=== PATIENT | female | born 1990 | race Caucasian/White ===

== ENCOUNTER 2023-12-23 10:37 | Emergency (ER) | payer OTHER, SELFPAY ==
[2023-12-23 10:40] VITALS: BP 97/68
--- NOTE | 2023-12-23 11:25 | ED.GENMED ---
History of Present Illness
General
Chief Complaint: Numbness
Source: patient
Exam Limitations: none
Time Seen by Provider: 12/23/23 11:12
History of Present Illness
History of Present Illness:
See MDM
Past History
Past History
ED Past Medical History: None
ED Past Surgical History: None
Social History
Tobacco: Non-smoker
Alcohol: None
Phy Exam
Physical Exam
Physical Exam:
See MDM
Course
Orders/Labs/Results
Orders:
Orders
12/23/23 11:24
CT Head W/o Iv Contrast Urgent
Comment:
Reason For Exam: intermittent R facial numbness
12/23/23 11:29
Test Result ONCE
12/23/23 11:37
Complete Blood Count/With Diff Urgent
Comprehensive Metabolic Panel Urgent
HCG, Serum Qualitative Screen Urgent
Lyme Progressive Urgent
Abnormal Lab Results
12/23/23
11:37
WBC 3.9 L 10^3/uL
(4.8-10.8)
RBC 4.06 L 10^6/uL
(4.20-5.40)
Hgb 11.6 L g/dL
(12.0-16.0)
Hct 35.0 L %
(37.0-47.0)
MPV 10.6 H fL
(7.4-10.4)
Absolute Lymphs (auto) 0.8 L 10^3/uL
(1.2-3.4)
Glucose 102 H mg/dl
(70-99)
AST 41 H U/L
(14-36)
ALT 53 H U/L
(0-35)
12/23/23 11:37
12/23/23 11:37
Vital Signs
Initial and Last Documented VS:
Initial Vital Signs
Temp Pulse Resp BP Pulse Ox
97.9 F 76 16 97/68 98
12/23/23 10:40 12/23/23 10:40 12/23/23 10:40 12/23/23 10:40 12/23/23 10:40
Last Documented Vital Signs
Temp Pulse Resp BP Pulse Ox
97.9 F 70 18 91/62 99
12/23/23 10:40 12/23/23 12:14 12/23/23 12:14 12/23/23 12:14 12/23/23 12:14
MDM/Problems Addressed
Differential Diagnosis Includes:
HPI and MDM Narrative:
33-year-old female presenting for evaluation of intermittent right-sided facial numbness. This has been ongoing for months. at bedside states that it gets worse when she gets angry. It can last for up to a week. She denies any pain or
headache or neck pain. She denies numbness or tingling in her extremities. Due to the chronic nature of the issue, they made a PCP appointment but they do not have one for a few weeks. Will obtain basic blood work and CT head. She otherwise is
well-appearing nontoxic and has no focal neuro deficits
Physical exam
General: Well appearing and non-toxic
HEENT: protecting airway. Pupils equal and reactive
Neck: supple
CV: No evidence of cyanosis. Regular rate and rhythm
Resp: No accessory muscle use
Abd: Non-distended
Extremities: No deformities
Neuro: alert. No facial paralysis noted. Sensation grossly intact
Psych: Normal affect
Skin: Intact
Problems Addressed including Acute and Chronic Conditions affecting care:
1. Right facial numbness
Acuity: subacute
Prognosis: stable
Details: believes that it could be anxiety versus a stress response. Will obtain CT head obtain basic blood work in addition to Lyme test
2. [ ]
Acuity: acute
Prognosis: stable
Details:
3. [ ]
Acuity: acute
Prognosis: stable
Details:
4. [ ]
Acuity: acute
Prognosis: stable
Details:
5. [ ]
Acuity:
Prognosis:
Details:
Updates
Differential Diagnosis (but not limited to): Lyme disease, stress response, Sy's palsy, brain mass
Testing considered: CT angio neck but she has no tenderness there and no visual complaint
Drug therapy (if applicable): OTC meds, please see d/c instruction regarding Rx drugs
Amount and/or Complexity of Data Reviewed
Clinical info obtained from: Patient
External data reviewed: N/A
Labs I independently reviewed (but not limited to): [ ]
Radiology: N/A
Pulse Ox: not hypoxic
EKG independently reviewed: N/A
Quantometer Operator: N/A
Critical Care: N/A
Risk of Complication:
Social Determinants of health: Good social support
Discussed with other providers: N/A
Escalation of Care includes Admit/Obs: After being observed in the Emergency Department, pt stable for discharge.
Occasional wrong word or 'sound a like' substitutions may have occurred due to the inherent limitations of voice recognition software. Read the chart carefully and recognize, using context, where substitutions have occurred.
*Critical Care Note
Total Time (30-74mins, 75-104mins- exclusive of procedures): Not Applicable
ED Attending Note
-
Portions of this chart may have been created with voice recognition software.� Occasional wrong word or��sound alike� substitutions may have occurred due to the inherent limitations of voice recognition software.
Discharge Plan
Departure
Patient Disposition: Home (Routine Discharge)
Date of Disposition: 12/23/23
Time of Disposition: 13:54
Patient with high blood pressure during this ER visit?: No
Discharge Problem:
Facial numbness
Prescriptions:
New
hydroxyzine HCl 25 mg tablet
25 mg PO BID PRN (Reason: anxiety ) Qty: 20 0RF
Referrals:
UNKNOWN - PT DOES,NOT KNOW [Family Provider] -
Activity Restrictions/Additional Instructions:
It is not clear where the symptoms are coming from. The blood work does not show any significant abnormalities and the CT of the head showed no abnormalities that would explain the symptoms. Please bring the blood work and the CT report to the
primary care doctor to discuss further testing and workup.
Interventions
Interventions:
*Risk Screen - Suicide Last Done: 12/23/23 13:31
*General Assessment Last Done: 12/23/23 13:31
*Neglect/Abuse Screening Last Done: 12/23/23 13:31
ED- Fall Risk Assessment Last Done: 12/23/23 12:24
ED- Neurological Assessment Last Done: 12/23/23 12:13
Discharge Date and Time
Print Language: [id number]
[2023-12-23 11:48] LABS: % Basophils 0.5 % (0-2); % Eosinophils 2.6 % (0-6); % Immature Granulocytes 0.3 % (0-0.5); % Lymphocytes 21.2 % (20.5-51.1); % Monocytes 7.4 % (1.7-9.3); Absolute Eosinophils 0.1 10^3/uL (0-0.7); Absolute Lymphocytes 0.8 10^3/uL (1.2-3.4); Absolute Monocytes 0.3 10^3/uL (0.1-0.6); Absolute Neutrophils 2.7 10^3/uL (1.4-6.5); Hemoglobin 11.6 g/dL (12.0-16.0); Mean Corp Hgb Conc. 33.1 g/dL (33.0-37.0); Mean Corpuscular Hgb 28.6 pg (27.0-31.0); Mean Corpuscular Volume 86.2 fL (81.0-99.0); Mean Platelet Volume 10.6 fL (7.4-10.4); Nucleated Red Blood Cells % 0 %; Platelet Count 229 10^3/uL (130-400); Red Blood Cell Count 4.06 10^6/uL (4.20-5.40); Red Cell Dist. Width 12.6 % (11.5-14.5); White Blood Cell Count 3.9 10^3/uL (4.8-10.8)
[2023-12-23 12:09] LABS: HCG, Serum Qualitative Screen Negative
[2023-12-23 12:11] LABS: ALT (SGPT) 53 U/L (0-35); AST (SGOT) 41 U/L (14-36); Albumin 4.3 g/dl (3.5-5.0); Alkaline Phosphatase 72 U/L (38-126); Blood Urea Nitrogen 11 mg/dl (7-17); Calcium 9.3 mg/dl (8.4-10.2); Carbon Dioxide 26 mmol/L (22-30); Chloride 104 mmol/L (98-107); Glucose 102 mg/dl (70-99); Potassium 3.9 mmol/L (3.5-5.1); Sodium 140 mmol/L (135-145); eGFR > 60.00
[2023-12-23 12:14] VITALS: BP 91/62
[2023-12-23 14:04] VITALS: BP 95/62
[2023-12-26 13:45] LABS: Lyme Antibody Screen, EIA Negative (Negative)
== END 2023-12-23 14:05 | disposition home or self-care (01) ==
LOC: EMR 10:37
PROVIDERS: EMERGENCY PHYSICIAN Student in an Organized Health Care Education/Training Program
DX: R20.0 Anesthesia of skin (principal)
CPT/HCPCS: 99284; 70450; 80053; 84703; 85025; 86618